=== PATIENT | male | born 1975 | race Caucasian/White ===

== ENCOUNTER 2022-02-24 17:07 | Observation (INO) ==
[2022-02-25] MEDS ORDERED: Acetaminophen 325 MG TABLET PO PRN (00:26)
[2022-02-25] MEDS ORDERED: Melatonin 3 MG TABLET PO PRN (00:26)
[2022-02-25] MEDS ORDERED: Naloxone 0.4 MG/ML INJ IVP PRN (00:26)
[2022-02-25] MEDS ORDERED: Ondansetron 4 MG/2 ML VIAL IVP PRN (00:26)
[2022-02-25 00:29] LABS: Blood Gas VT 550 cc; Mixed Venous Blood pCO2 82 mmHg (44-46); Mixed Venous Blood pH 7.34 pH Units (7.34-7.36); Mixed Venous Blood pO2 48 mmHg (35-45)
[2022-02-25] MEDS: MethylPREDNISolone 40 MG/ML VIAL IVP SCH ×5 (01:17→23:16)
[2022-02-25] MEDS: *HR* Heparin 5,000 UNIT/ML VIAL SQ SCH ×4 (01:17→20:40)
[2022-02-25] MEDS ORDERED: Dextrose Gel 15 GM/37.5 ML TUBE PO PRN ×2 (01:45)
[2022-02-25] MEDS ORDERED: *HR* Dextrose 50 % in Water (Syg) 50 ML SYRINGE IVP PRN (01:45)
[2022-02-25] MEDS ORDERED: D5% in Water 1,000 ML IVC PRN (01:45)
[2022-02-25] MEDS: Azithromycin 500 MG in 0.9 % Sodium Chloride 250 ML IVPB SCH (02:26)
[2022-02-25] MEDS: Ipratropium/Albuterol Neb 3 ML IH SCH ×7 (03:09→23:04)
[2022-02-25] MEDS: Insulin LISPRO 300 UNITS/3 ML VIAL SUBQ SCH ×4 (05:04→23:16)
[2022-02-25 05:45] LABS: Red Blood Count 5.19 M/mcL (4.19-5.50)
[2022-02-25 05:47] LABS: Immature Platelets 12.2 % (1.1-6.1); Mean Corpuscular HGB Conc 29.8 g/dL (31.6-35.5); Mean Corpuscular Volume 90.6 fL (83.0-100.0); Mean Platelet Volume 11.6 fL (9.4-12.4); Red Cell Distribution Width 15.7 % (11.5-14.5)
[2022-02-25 06:12] LABS: ABG Base Excess 13 mEq/L (-2 to 3); ABG HCO3 43 mEq/L (21-27); ABG Oxygen Saturation 91 % (95-98); ABG PCO2 75 mmHg (35-45); ABG PH 7.36 pH Units (7.32-7.45); ABG PO2 68 mmHg (85-104); ABG TCO2 45 mEq/L (20-26); Blood Gas VT 550 cc
[2022-02-25 06:49] LABS: Alanine Aminotransferase 13 Units/L (7-52); Albumin 3.8 g/dL (3.5-5.7); Albumin/Globulin Ratio 1.1 (1.1-2.2); Alkaline Phosphatase 75 Units/L (34-104); Aspartate Amino Transferase 14 Units/L (13-39); BUN/Creatinine Ratio 14 (6-26); Bilirubin,Total 0.3 mg/dL (0.3-1.0); Blood Urea Nitrogen 9 mg/dL (6-20); Calcium 8.1 mg/dL (8.6-10.3); Carbon Dioxide 39 mEq/L (23-29); Chloride 94 mEq/L (98-107); Globulin 3.5 g/dL (2.4-3.5); Glucose 137 mg/dL (70-105); Osmolality,Calculated 287 (280-300); Potassium 4.2 mEq/L (3.5-5.1); Sodium 138 mEq/L (136-145); Total Protein 7.3 g/dL (6.4-8.9); eGFR For African Americans > 60 (> 60); eGFR For Non-African Americans > 60 (> 60)
[2022-02-25 10:11] LABS: Adenovirus Not Detected (Not Detect); Bordetella Pertussis Not Detected (Not Detect); Chlamydophila pneumoniae Not Detected (Not Detect); Coronavirus 229E Not Detected (Not Detect); Coronavirus HKU1 Not Detected (Not Detect); Coronavirus NL63 Not Detected (Not Detect); Coronavirus OC43 Not Detected (Not Detect); Human Metapneumovirus Not Detected (Not Detect); Human Rhinovirus/Enterovirus DETECTED (Not Detect); Influenza A Subtype 2009 H1 Not Detected (Not Detect); Influenza B Not Detected (Not Detect); Mycoplasma pneumoniae Not Detected (Not Detect); Parainfluenza Virus 1 Not Detected (Not Detect); Parainfluenza Virus 2 Not Detected (Not Detect); Parainfluenza Virus 3 Not Detected (Not Detect); Parainfluenza Virus 4 Not Detected (Not Detect); Respiratory Syncytial Virus Not Detected (Not Detect); SARS-CoV-2 Not Detected (Not Detect)
[2022-02-25] MEDS: QUEtiapine Fumarate 100 MG TABLET PO SCH (12:19)
[2022-02-25] MEDS: clonazePAM 0.5 MG TABLET PO SCH ×2 (12:19→20:40)
[2022-02-25] MEDS: Venlafaxine XR (24 HR) 150 MG CAP.ER.24H PO SCH (12:19)
[2022-02-25] MEDS ORDERED: QUEtiapine Fumarate 100 MG TABLET PO SCH (21:00)
[2022-02-26] MEDS: Azithromycin 500 MG in 0.9 % Sodium Chloride 250 ML IVPB SCH (01:54)
[2022-02-26 02:10] LABS: Hematocrit 44.4 % (37.5-50.1); Hemoglobin 13.9 g/dL (12.9-16.9); Mean Corpuscular HGB Conc 31.3 g/dL (31.6-35.5); Mean Corpuscular Hemoglobin 27.3 pg (28.0-33.3); Mean Corpuscular Volume 87.2 fL (83.0-100.0); Mean Platelet Volume 11.3 fL (9.4-12.4); Platelet Count 147 K/mcL (140-400); Red Blood Count 5.09 M/mcL (4.19-5.50); Red Cell Distribution Width 15.2 % (11.5-14.5); White Blood Count 9.2 K/mcL (4.3-11.1)
[2022-02-26 02:24] LABS: BUN/Creatinine Ratio 21 (6-26); Blood Urea Nitrogen 12 mg/dL (6-20); Calcium 9.4 mg/dL (8.6-10.3); Carbon Dioxide 34 mEq/L (23-29); Chloride 94 mEq/L (98-107); Glucose 135 mg/dL (70-105); Osmolality,Calculated 282 (280-300); Potassium 4.2 mEq/L (3.5-5.1); Sodium 135 mEq/L (136-145); eGFR For African Americans > 60 (> 60); eGFR For Non-African Americans > 60 (> 60)
[2022-02-26 02:31] LABS: C-Reactive Protein 12 mg/L (Less than 10)
[2022-02-26] MEDS: Ipratropium/Albuterol Neb 3 ML IH SCH ×4 (04:06→16:18)
[2022-02-26] MEDS: MethylPREDNISolone 40 MG/ML VIAL IVP SCH (05:42)
[2022-02-26] MEDS: *HR* Heparin 5,000 UNIT/ML VIAL SQ SCH ×2 (05:43→14:21)
[2022-02-26] MEDS: Insulin LISPRO 300 UNITS/3 ML VIAL SUBQ SCH ×3 (08:38→16:02)
[2022-02-26] MEDS: Venlafaxine XR (24 HR) 150 MG CAP.ER.24H PO SCH (08:38)
[2022-02-26] MEDS: QUEtiapine Fumarate 100 MG TABLET PO SCH (08:38)
[2022-02-26] MEDS: clonazePAM 0.5 MG TABLET PO SCH (08:38)
[2022-02-26] MEDS ORDERED: MethylPREDNISolone 40 MG/ML VIAL IVP SCH (16:00)
[2022-02-26] MEDS ORDERED: Insulin LISPRO 300 UNITS/3 ML VIAL SUBQ SCH (21:00)
[2022-02-27] MEDS ORDERED: predniSONE 20 MG TABLET PO SCH (09:00)
== END 2022-02-26 17:44 | disposition home or self-care (01) ==
LOC: 2NNU → SUATTDRO 23:59
PROVIDERS: ADMIT General Practice; ATTEND Student in an Organized Health Care Education/Training Program

== ENCOUNTER 2022-06-09 15:48 | Inpatient (IN) ==
[2022-06-09] MEDS ORDERED: Naloxone 0.4 MG/ML INJ IVP PRN (19:24)
[2022-06-09] MEDS ORDERED: Ondansetron ODT 4 MG TAB.RAPDIS SL PRN (19:24)
[2022-06-09] MEDS ORDERED: D5% in Water 1,000 ML IVC PRN (19:36)
[2022-06-09] MEDS ORDERED: Dextrose Gel 15 GM/37.5 ML TUBE PO PRN ×2 (19:36)
[2022-06-09] MEDS ORDERED: *HR* Dextrose 50 % in Water (Syg) 50 ML SYRINGE IVP PRN (19:36)
[2022-06-09] MEDS ORDERED: Ipratropium/Albuterol Neb 3 ML IH PRN (19:54)
[2022-06-09 20:22] LABS: ABG Base Excess 12 mEq/L (-2 to 3); ABG HCO3 40 mEq/L (21-27); ABG Oxygen Saturation 89 % (95-98); ABG PCO2 66 mmHg (35-45); ABG PO2 60 mmHg (85-104); ABG TCO2 42 mEq/L (20-26)
[2022-06-09] MEDS ORDERED: *HR* HYDROcodone/Acet 5/325 mg TABLET PO PRN (22:29)
[2022-06-09] MEDS: *HR* Heparin 5,000 UNIT/ML VIAL SQ SCH (22:58)
[2022-06-09] MEDS ORDERED: NON-FORMULARY MEDICATION 1 EACH EACH (Quetiapine Fumarate [Seroquel] 400 MG Tablet) PO SCH (23:45)
[2022-06-09 23:48] LABS: Influenza A PCR Negative (Negative); Influenza B PCR Negative (Negative); Resp. Syncytial Virus PCR Negative (Negative)
[2022-06-09 23:53] LABS: SARS-CoV-2 by PCR (In House) Negative (Negative)
[2022-06-09] MEDS: Insulin LISPRO 300 UNITS/3 ML VIAL SUBQ SCH (23:57)
[2022-06-09] MEDS: Insulin DETEMIR 100 UNIT/ML X5UNITS SUBQ SCH (23:57)
[2022-06-09] MEDS: QUEtiapine Fumarate 100 MG, QUEtiapine Fumarate 300 MG PO SCH (23:57)
[2022-06-10] MEDS: Ipratropium/Albuterol Neb 3 ML IH SCH ×4 (03:41→20:28)
[2022-06-10] MEDS: *HR* Heparin 5,000 UNIT/ML VIAL SQ SCH ×3 (06:30→20:17)
[2022-06-10] MEDS: Venlafaxine XR (24 HR) 150 MG CAP.ER.24H PO SCH (06:33)
[2022-06-10] MEDS: Insulin LISPRO 300 UNITS/3 ML VIAL SUBQ SCH ×4 (08:00→20:18)
[2022-06-10] MEDS ORDERED: QUEtiapine Fumarate 100 MG TABLET PO SCH (08:00)
[2022-06-10 09:02] LABS: Hemoglobin 13.3 g/dL (12.9-16.9)
[2022-06-10 09:03] LABS: Hematocrit 43.3 % (37.5-50.1); Immature Platelets 9.5 % (1.1-6.1); Mean Corpuscular HGB Conc 30.7 g/dL (31.6-35.5); Mean Corpuscular Hemoglobin 28.2 pg (28.0-33.3); Mean Corpuscular Volume 91.9 fL (83.0-100.0); Mean Platelet Volume 10.7 fL (9.4-12.4); Red Blood Count 4.71 M/mcL (4.19-5.50); Red Cell Distribution Width 17.4 % (11.5-14.5); White Blood Count 9.9 K/mcL (4.3-11.1)
[2022-06-10 09:09] LABS: VBG HCO3 39 mEq/L (21-27); VBG PCO2 60 mmHg (41-51); VBG PH 7.42 pH Units (7.32-7.42); VBG PO2 217 mmHg (25-50)
[2022-06-10 09:25] LABS: BUN/Creatinine Ratio 23 (6-26); Blood Urea Nitrogen 12 mg/dL (6-20); Calcium 9.1 mg/dL (8.6-10.3); Carbon Dioxide 40 mEq/L (23-29); Chloride 94 mEq/L (98-107); Glucose 92 mg/dL (70-105); Osmolality,Calculated 283 (280-300); Potassium 4.3 mEq/L (3.5-5.1); Sodium 137 mEq/L (136-145)
[2022-06-10] MEDS: carvediloL 6.25 MG TABLET PO SCH ×2 (09:47→16:42)
[2022-06-10] MEDS: Azithromycin 250 MG TABLET PO SCH (09:47)
[2022-06-10] MEDS: RisperiDAL 3 MG TABLET PO SCH ×2 (09:47→20:17)
[2022-06-10] MEDS: Gabapentin 400 MG CAPSULE PO SCH ×4 (09:47→20:17)
[2022-06-10] MEDS: lisinopriL 20 MG TABLET PO SCH (09:48)
[2022-06-10] MEDS: MethylPREDNISolone 40 MG/ML VIAL IVP SCH (09:48)
[2022-06-10] MEDS: Insulin DETEMIR 100 UNIT/ML X5UNITS SUBQ SCH ×2 (09:49→20:20)
[2022-06-10] MEDS: Budesonide/Formoterol 160/4.5 1 PUFF INH IH SCH ×2 (10:03→20:28)
[2022-06-10] MEDS: Melatonin 3 MG TABLET PO PRN (20:16)
[2022-06-10] MEDS: QUEtiapine Fumarate 100 MG, QUEtiapine Fumarate 300 MG PO SCH (20:17)
[2022-06-11 02:54] LABS: Basophils % 0.2 %; Eosinophils % 0.1 %; Hematocrit 42.1 % (37.5-50.1); Hemoglobin 13.1 g/dL (12.9-16.9); Immature Granulocytes % 0.3 % (0-4); Immature Platelets 10.8 % (1.1-6.1); Lymphocytes # 2.7 K/mcL (0.6-4.6); Lymphocytes % 23.2 %; Mean Corpuscular HGB Conc 31.1 g/dL (31.6-35.5); Mean Corpuscular Hemoglobin 28.1 pg (28.0-33.3); Mean Corpuscular Volume 90.3 fL (83.0-100.0); Mean Platelet Volume 11.3 fL (9.4-12.4); Monocytes # 1.2 K/mcL (0.0-1.3); Monocytes % 10.2 %; Neutrophils # 7.7 K/mcL (1.6-8.9); Platelet Count 129 K/mcL (140-400); Red Blood Count 4.66 M/mcL (4.19-5.50); Red Cell Distribution Width 17.3 % (11.5-14.5); White Blood Count 11.7 K/mcL (4.3-11.1)
[2022-06-11 03:05] LABS: BUN/Creatinine Ratio 27 (6-26); Blood Urea Nitrogen 16 mg/dL (6-20); Carbon Dioxide 39 mEq/L (23-29); Chloride 95 mEq/L (98-107); Glucose 108 mg/dL (70-105); Osmolality,Calculated 286 (280-300); Potassium 4.2 mEq/L (3.5-5.1); Sodium 137 mEq/L (136-145)
[2022-06-11] MEDS: Ipratropium/Albuterol Neb 3 ML IH SCH ×4 (03:58→22:57)
[2022-06-11] MEDS: *HR* Heparin 5,000 UNIT/ML VIAL SQ SCH ×3 (05:16→20:11)
[2022-06-11] MEDS: Venlafaxine XR (24 HR) 150 MG CAP.ER.24H PO SCH (05:16)
[2022-06-11] MEDS: carvediloL 6.25 MG TABLET PO SCH ×2 (09:30→17:29)
[2022-06-11] MEDS: Gabapentin 400 MG CAPSULE PO SCH ×4 (09:31→20:10)
[2022-06-11] MEDS: MethylPREDNISolone 40 MG/ML VIAL IVP SCH (09:31)
[2022-06-11] MEDS: lisinopriL 20 MG TABLET PO SCH (09:31)
[2022-06-11] MEDS: RisperiDAL 3 MG TABLET PO SCH ×2 (09:31→20:11)
[2022-06-11] MEDS: Azithromycin 250 MG TABLET PO SCH (09:31)
[2022-06-11] MEDS: Furosemide 40 MG TABLET PO SCH (09:31)
[2022-06-11] MEDS: Budesonide/Formoterol 160/4.5 1 PUFF INH IH SCH ×2 (09:33→22:57)
[2022-06-11] MEDS: Insulin DETEMIR 100 UNIT/ML X5UNITS SUBQ SCH ×2 (09:39→20:11)
[2022-06-11] MEDS: Insulin LISPRO 300 UNITS/3 ML VIAL SUBQ SCH ×4 (10:52→20:13)
[2022-06-11] MEDS: QUEtiapine Fumarate 100 MG, QUEtiapine Fumarate 300 MG PO SCH ×2 (20:10→20:11)
[2022-06-11] MEDS: Melatonin 3 MG TABLET PO PRN (20:10)
[2022-06-11 22:28] VITALS: TEMP 98.6
[2022-06-12] MEDS: Ipratropium/Albuterol Neb 3 ML IH SCH ×2 (03:24→10:02)
[2022-06-12] MEDS: *HR* Heparin 5,000 UNIT/ML VIAL SQ SCH (05:12)
[2022-06-12] MEDS: Venlafaxine XR (24 HR) 150 MG CAP.ER.24H PO SCH (05:12)
[2022-06-12 06:23] LABS: Basophils % 0.3 %; Eosinophils % 0.1 %; Platelet Count 125 K/mcL (140-400)
[2022-06-12 06:25] LABS: Hematocrit 44.6 % (37.5-50.1); Immature Granulocytes % 0.3 % (0-4); Immature Platelets 9.7 % (1.1-6.1); Lymphocytes # 3.1 K/mcL (0.6-4.6); Lymphocytes % 31.1 %; Mean Corpuscular HGB Conc 31.4 g/dL (31.6-35.5); Mean Corpuscular Hemoglobin 28.1 pg (28.0-33.3); Mean Corpuscular Volume 89.4 fL (83.0-100.0); Mean Platelet Volume 11.2 fL (9.4-12.4); Monocytes # 0.9 K/mcL (0.0-1.3); Monocytes % 9.4 %; Neutrophils # 5.9 K/mcL (1.6-8.9); Red Blood Count 4.99 M/mcL (4.19-5.50); Red Cell Distribution Width 17.2 % (11.5-14.5); Segmented Neutrophils % 58.8 %
[2022-06-12 06:42] LABS: BUN/Creatinine Ratio 26 (6-26); Blood Urea Nitrogen 16 mg/dL (6-20); Calcium 9.2 mg/dL (8.6-10.3); Carbon Dioxide 34 mEq/L (23-29); Chloride 97 mEq/L (98-107); Glucose 94 mg/dL (70-105); Osmolality,Calculated 283 (280-300); Potassium 3.9 mEq/L (3.5-5.1); Sodium 136 mEq/L (136-145)
[2022-06-12 07:47] VITALS: BP 152/92; PULSE 84
[2022-06-12] MEDS: Insulin LISPRO 300 UNITS/3 ML VIAL SUBQ SCH (08:01)
[2022-06-12] MEDS: lisinopriL 20 MG TABLET PO SCH (08:39)
[2022-06-12] MEDS: RisperiDAL 3 MG TABLET PO SCH (08:39)
[2022-06-12] MEDS: Gabapentin 400 MG CAPSULE PO SCH (08:40)
[2022-06-12] MEDS: Furosemide 40 MG TABLET PO SCH (08:40)
[2022-06-12] MEDS: Azithromycin 250 MG TABLET PO SCH (08:40)
[2022-06-12] MEDS: carvediloL 6.25 MG TABLET PO SCH (08:40)
[2022-06-12] MEDS: Insulin DETEMIR 100 UNIT/ML X5UNITS SUBQ SCH (08:44)
[2022-06-12] MEDS ORDERED: predniSONE 20 MG TABLET PO SCH (09:00)
[2022-06-12] MEDS: Budesonide/Formoterol 160/4.5 1 PUFF INH IH SCH (10:02)
[2022-06-12 10:11] VITALS: O2SAT 88
== END 2022-06-12 12:01 | disposition home or self-care (01) | DRG 190 ==
LOC: 2NNU → SUATTDRO 19:23
PROVIDERS: ADMIT Hospitalist; ATTEND Internal Medicine